=== PATIENT | male | born 1950 | race Caucasian/White ===

== ENCOUNTER 2021-01-27 10:52 | Outpatient (REF) | payer MEDICARE, OTHER, SELFPAY ==
--- NOTE | ~2021-01-27 | MR_ITS ---
EXAMINATION: MRI OF THE LEFT FEMUR WITHOUT CONTRAST CLINICAL INFORMATION: Left hamstring tear/bruising, reduced strength/RPM, weak flexion. COMPARISON: None. TECHNIQUE: Multiplanar MR imaging was obtained to the left femur without contrast material on a 1.5 Mercedes magnet. FINDINGS: Marked intramuscular edema signal is present within the quadriceps musculature, most pronounced at the vastus intermedius and vastus medialis muscles with more mild edema at the vastus lateralis. Within the distal thigh at the level of the distal femoral diaphysis, there is a 2.7 x 1.5 x 7 cm (AP by transverse by craniocaudal) heterogeneous focus of mixed hyperintense and hypointense foci of high T2-weighted images, most likely corresponding to a hematoma. No discrete tendon tears are identified. The distal quadriceps tendon is intact with mild tendinosis. At the origin of the ischial tuberosity, there is mild hamstring tendinosis with a punctate interstitial partial tear, likely chronic. No acute hamstring tears. Hamstring musculature is normal in signal intensity without significant atrophy or edema. There is mild edema signal within the sartorius muscle which is likely related to the underlying quadriceps musculature abnormality. Additional mild edema signal is present within the adductor compartment. No discrete tears. There is a bone island within the mid femoral diaphysis. No suspicious femoral lesions are identified. No fracture or stress reaction. There is osteoarthritis of the patellofemoral compartment of the left knee with an associated joint effusion, only partially imaged on this study. The left hip joint is not well evaluated on these images. There is a prominent left inguinal lymph node measuring up to 1.2 cm in short axis, possibly reactive in nature. No acute intrapelvic findings are identified. MR/MR femur LT wo con IMPRESSION: 1. Marked quadriceps intramuscular edema signal, most notably at the vastus medialis and vastus intermedius distally, surrounding a heterogeneous, 7 cm long intramuscular collection. These findings are most consistent with a quadriceps muscle strain/contusion and an associated intramuscular hematoma. Developing heterotopic ossification is less likely. No significant quadriceps tendon or muscle tears are identified. 2. Mild hamstring tendinosis and a probable small chronic interstitial tear at the origin of the ischial tuberosity.
== END 2021-01-27 10:53 | disposition home or self-care (01) ==
LOC: HO.MRI 10:52
PROVIDERS: PCP Internal Medicine; Visit Provider Internal Medicine
DX: S76.302A Unspecified injury of muscle, fascia and tendon of the posterior muscle group at thigh level, left thigh, initial encounter (principal); S80.12XA Contusion of left lower leg, initial encounter; M62.81 Muscle weakness (generalized)
CPT/HCPCS: 73718

== ENCOUNTER 2021-10-09 15:21 | Emergency (ER) | payer MEDICARE, OTHER, SELFPAY ==
--- NOTE | ~2021-10-09 | XR_ITS ---
EXAMINATION: XR HIP, LEFT CLINICAL INFORMATION: Fall. Pain. COMPARISON: None TECHNIQUE: Frontal view of pelvis. Two views of the left hip. FINDINGS: There is no acute abnormality. There is no fracture. No dislocation of pelvis or hips. No focal bone lesion. Mild degenerative joint disease of both hips and sacroiliac joints. Mild degenerative spondylosis of lower lumbar spine. XR/XR hip LT w PEL1V IMPRESSION: No acute abnormality of the pelvis or hips.
--- NOTE | ~2021-10-09 | XR_ITS ---
EXAMINATION: XR CHEST CLINICAL INFORMATION: Shortness of breath COMPARISON: Chest x-ray 10/01/2019 TECHNIQUE: Frontal view of the chest was obtained. 4:13 PM FINDINGS: Status post median sternotomy. Heart size is normal. Cardiac and mediastinal contours are normal. No pulmonary vascular congestion. Normal aeration of lungs. No pleural effusion or pneumothorax. XR/XR chest 1V IMPRESSION: No acute abnormality of chest.
[2021-10-09 15:34] VITALS: BP 132/65; PULSE 79; RESP 16; TEMP 36.9; O2SAT 98; BMI 22.2
--- NOTE | 2021-10-09 15:51 | ED_ITS ---
HPI - Extremity Injury (Lower) General Chief Complaint: Extremity Injury, Lower Stated Complaint: fell on tuesday Time Seen by Provider: 10/09/21 15:41 Source: patient Mode of arrival: ambulatory Limitations: no limitations History of Present Illness HPI Narrative: Patient on [place] had a mechanical fall 5 days ago fell down few steps landed on his left hip had a huge hematoma comes here for persistent hematoma and swelling with pain especially on ambulation. No head injury no loss of consciousness no other injuries Related Data Previous Rx's Medication Instructions Recorded codeine 10 mg-guaifenesin 100 mg/5 10 ml PO Q6H PRN #237 ml 10/09/21 mL oral liquid Allergies Allergy/AdvReac Type Severity Reaction Status Date / Time No Known Allergies Allergy Verified 10/09/21 16:01 Review of Systems Review of Systems: Yes all other systems are reviewed and are negative PMFSH Past Medical History Medical History Afib Coronary bypass graft mechanical complication Social History Social History Advance Directives: No Advance Directives Information Provided: No Physical Exam Vital Signs: Vital Signs: Last Vital Signs Temp 99.8 F 10/09/21 23:19 Pulse 96 10/09/21 23:19 Resp 18 10/09/21 23:19 BP 119/70 10/09/21 23:19 Pulse Ox 98 10/09/21 23:19 BMI result Body Mass Index 22.2 Const: General: healthy appearing and comfortable Orientation/consciousness: patient oriented x3 HENMT: Head: Yes normocephalic Ears: hearing grossly normal bilaterally Throat: Yes posterior oropharynx normal Eyes: General: appearance normal, both eyes and all related structures Neck: Neck: Yes full ROM, Yes supple and No tender Chest: Chest palpation & inspection: normal inspection of the chest and normal palpation of entire chest wall Resp: Effort & Inspection: normal respiratory effort Auscultation: clear to auscultation bilaterally Cardio: Rate: regular rate Rhythm: regular rhythm Heart sounds: S1 normal heart sound present and S2 normal heart sound present GI: Inspection: Yes normal to inspection Palpation (GI): Soft to palpation and nontender Neuro: General: patient oriented x3 Extrem: Right lower extremity: normal to inspection and full ROM Left lower extremity: full ROM Upper/lower leg/hip images: 1. tense Hematoma at upper part of thigh MDM - Extremity Injury (Lower) MDM Narrative Medical decision making narrative: X-ray negative for fracture patient able to ambulate in the ER workup showed patient has a COVID infection although chest x- ray negative for any acute infiltrate patient is not hypoxic saturating 98% on room air will discharge patient home Lab Data Attestation: I reviewed the patient's lab results. Result diagrams: 10/09/21 16:37 10/09/21 16:37 Labs: Lab Results 10/09/21 10/09/21 10/09/21 Range/Units 16:37 16:37 16:37 WBC 8.2 (4.8-10.8) X10*3/uL RBC 3.45 L (4.60-5.80) X10*6/uL Hgb 9.7 L (14.0-18.0) g/dl Hct 29.0 L (42.0-52.0) % MCV 84.1 (80.0-98.0) fL MCH 28.1 (27.0-33.0) pg MCHC 33.4 (31.0-36.0) g/dl RDW 16.3 H (11.0-16.0) % Plt Count 229 (160-400) X10*3/uL MPV 9.1 L (9.4-12.4) fL Immature Gran % (Auto) 0.1 (0.0-0.4) % Neut % (Auto) 69.5 (45-73) % Lymph % (Auto) 16.2 L (20-40) % Broome % (Auto) 13.6 H (2-11) % Eos % (Auto) 0.2 (0-4) % Baso % (Auto) 0.4 (0-2) % Lymph # (Auto) 1.3 (1.2-4.9) X10*3/uL Broome # (Auto) 1.1 (0.1-1.2) X10*3/uL Eos # (Auto) 0.0 (0.0-0.4) X10*3/uL Baso # (Auto) 0.0 (0.0-0.2) X10*3/uL Abs Immat Gran (auto) 0.01 (0.00-0.03) X10*3/uL Absolute Neuts (auto) 5.7 (2.0-8.3) x10*3/uL Absolute Nucleated RBC 0.000 (0.0-0.012) X10*3/uL Nucleated RBC % (auto) 0.0 (0.0-0.2) /100WBC PT 26.5 H (9.9-13.0) SEC INR 2.3 H (0.9-1.1) Sodium 136 (135-145) mmol/L Potassium 4.5 (3.3-5.1) mmol/L Chloride 103 (96-108) mmol/L Carbon Dioxide 25 (22-29) mmol/L Anion Gap 13 (12-20) BUN 22 H (9-16) mg/dL Creatinine 0.79 (0.5-1.4) mg/dL Estim Creat Clear Calc 84.0 Estimated GFR > 60 Random Glucose 104 (60-115) mg/dL Lactic Acid (0.5-2.0) mmol/L Calcium 8.3 L (8.4-10.2) mg/dL B-Natriuretic Peptide (<100) pg/mL COVID-19 ([facility]) (Negative) COVID-19 Clin Com 10/09/21 10/09/21 10/09/21 Range/Units 16:37 16:37 20:31 WBC (4.8-10.8) X10*3/uL RBC (4.60-5.80) X10*6/uL Hgb (14.0-18.0) g/dl Hct (42.0-52.0) % MCV (80.0-98.0) fL MCH (27.0-33.0) pg MCHC (31.0-36.0) g/dl RDW (11.0-16.0) % Plt Count (160-400) X10*3/uL MPV (9.4-12.4) fL Immature Gran % (Auto) (0.0-0.4) % Neut % (Auto) (45-73) % Lymph % (Auto) (20-40) % Broome % (Auto) (2-11) % Eos % (Auto) (0-4) % Baso % (Auto) (0-2) % Lymph # (Auto) (1.2-4.9) X10*3/uL Broome # (Auto) (0.1-1.2) X10*3/uL Eos # (Auto) (0.0-0.4) X10*3/uL Baso # (Auto) (0.0-0.2) X10*3/uL Abs Immat Gran (auto) (0.00-0.03) X10*3/uL Absolute Neuts (auto) (2.0-8.3) x10*3/uL Absolute Nucleated RBC (0.0-0.012) X10*3/uL Nucleated RBC % (auto) (0.0-0.2) /100WBC PT (9.9-13.0) SEC INR (0.9-1.1) Sodium (135-145) mmol/L Potassium (3.3-5.1) mmol/L Chloride (96-108) mmol/L Carbon Dioxide (22-29) mmol/L Anion Gap (12-20) BUN (9-16) mg/dL Creatinine (0.5-1.4) mg/dL Estim Creat Clear Calc Estimated GFR Random Glucose (60-115) mg/dL Lactic Acid 1.1 (0.5-2.0) mmol/L Calcium (8.4-10.2) mg/dL B-Natriuretic Peptide 275 H (<100) pg/mL COVID-19 ([facility]) Positive A (Negative) COVID-19 Clin Com See Note Discharge Plan Discharge Clinical Impression: Hematoma, COVID-19 Patient Disposition: Home, Self-Care Instructions: Hematoma (ED), COVID-19 (Coronavirus Disease 2019) (ED) Additional Instructions: Drink plenty of fluids rest at home No hematoma will get better with time Social distancing as advised Report to ER if increased shortness of breath Prescriptions: New codeine-guaifenesin 10-100 mg/5 mL liquid 10 ml PO Q6H PRN (Reason: cough) Qty: 237 RF: 0 Interventions: ED Discharge Assessment Last Done: 10/09/21 23:38 Discharge Date/Time: 10/09/21 23:40
[2021-10-09 16:31] VITALS: BP 138/75; PULSE 86; RESP 16; TEMP 37.3; O2SAT 100
[2021-10-09 16:43] LABS: MANUAL DIFF FLAG NO
[2021-10-09 16:44] LABS: Basophils Percent Auto 0.4 % (0-2); Eosinophils Percent Auto 0.2 % (0-4); Hemoglobin 9.7 g/dl (14.0-18.0); Imm Gran Abs Auto 0.01 X10*3/uL (0.00-0.03); Imm Gran Pct Auto 0.1 % (0.0-0.4); Lymphocytes Absolute Auto 1.3 X10*3/uL (1.2-4.9); Lymphocytes Percent Auto 16.2 % (20-40); Mean Corpuscular HGB Conc 33.4 g/dl (31.0-36.0); Mean Corpuscular Hemoglobin 28.1 pg (27.0-33.0); Mean Corpuscular Volume 84.1 fL (80.0-98.0); Mean Platelet Volume 9.1 fL (9.4-12.4); Monocytes Absolute Auto 1.1 X10*3/uL (0.1-1.2); Monocytes Percent Auto 13.6 % (2-11); Neutrophils Absolute Auto 5.7 x10*3/uL (2.0-8.3); Neutrophils Percent Auto 69.5 % (45-73); Platelet Count 229 X10*3/uL (160-400); Red Blood Count 3.45 X10*6/uL (4.60-5.80); Red Cell Distribution Width 16.3 % (11.0-16.0); White Blood Count 8.2 X10*3/uL (4.8-10.8)
[2021-10-09 16:49] LABS: INTERNATIONAL NORM RATIO 2.3 (0.9-1.1); Prothrombin Time 26.5 SEC (9.9-13.0)
[2021-10-09 16:51] LABS: COVID-19 Test Positive (Negative)
[2021-10-09 16:57] LABS: Anion Gap 13 (12-20); Blood Urea Nitrogen 22 mg/dL (9-16); Calcium 8.3 mg/dL (8.4-10.2); Carbon Dioxide 25 mmol/L (22-29); Chloride 103 mmol/L (96-108); Estimated Glomerular Filt Rate > 60; Glucose Random 104 mg/dL (60-115); Potassium 4.5 mmol/L (3.3-5.1); Sodium 136 mmol/L (135-145)
[2021-10-09 17:02] LABS: B Type Natriuretic Peptide 275 pg/mL (<100)
[2021-10-09] MEDS: guaiFEN/Codeine SF 200/20/10ML 10 ML LIQUID PO (18:52)
[2021-10-09 20:02] VITALS: BP 120/69; PULSE 74; RESP 20; TEMP 39.6; O2SAT 99
[2021-10-09] MEDS: Acetaminophen 325 MG TABLET 650 MG PO (20:22)
[2021-10-09 20:59] LABS: Lactic Acid 1.1 mmol/L (0.5-2.0)
[2021-10-09 21:23] VITALS: TEMP 37
[2021-10-09 23:19] VITALS: BP 119/70; PULSE 96; RESP 18; TEMP 37.7; O2SAT 98
--- NOTE | 2021-10-10 01:36 | PC.NURSE ---
[facility] CALLED BACK TO SPEAK W/THIS RN, THEY STATED PT WAS FOUND BY [facility] AND BROUGHT HOME SAFELY.
== END 2021-10-09 23:40 | disposition home or self-care (01) ==
PROVIDERS: Emergency Provider Internal Medicine; PCP Internal Medicine
DX: U07.1 COVID-19 (principal); M25.552 Pain in left hip; R06.02 Shortness of breath; Z79.899 Other long term (current) drug therapy
CPT/HCPCS: 36415; 71045; 73502; 80048; 83605; 83880; 85025; 85610; 87040; 87635; 99284

== ENCOUNTER 2022-01-12 09:47 | Outpatient (REF) | payer MEDICARE, OTHER, SELFPAY ==
--- NOTE | ~2022-01-12 | CT_ITS ---
EXAMINATION: CT ABDOMEN AND PELVIS WITH CONTRAST CLINICAL INFORMATION: Carcinoid tumor COMPARISON: CT abdomen pelvis 03/15/2020 TECHNIQUE: Multidetector volumetric images were obtained from the superior aspect of the liver through the pubic symphysis following administration 85 mL of Omnipaque 350 intravenous contrast. Sagittal and coronal reformatted images were obtained on the technologist's workstation. This CT examination was performed using dose optimization techniques as appropriate, variously including the following: *Automated exposure control *Adjustment of mA and/or kV according to patient size (this includes techniques or standardized protocols for targeted exams where dose is matched to indication/reason for exam; i.e. extremities or head) *Use of iterative reconstruction technique DLP: 311 mGy-cm FINDINGS: Visualized lung bases are well aerated. Coronary artery calcifications are partially visualized. Innumerable lesions are again noted throughout the liver. Direct size comparison of lesions is difficult given large number of lesions and slight differences in contrast bolus timing, however, there appears to be mild interval decrease in size and necrosis of a now 7.6 cm lesion within the posterior right hepatic lobe (previously 10 cm). There are a few smaller lesions within the left hepatic lobe which were not definitively visualized previously, however, again this may be due to contrast bolus timing. Gallstones are noted within an otherwise unremarkable appearing gallbladder. The pancreas, spleen and adrenal glands are unremarkable. Symmetrically enhancing kidneys. No hydronephrosis bilaterally. The stomach is decompressed. Normal caliber loops of small and large bowel. Interval decrease in size of partially calcified mesenteric mass slightly to the left of midline which measures approximately 1.6 x 1.4 cm (previously 2.2 x 1.7 cm). Normal caliber abdominal aorta which demonstrates moderate to severe atherosclerotic disease. No gross retroperitoneal lymphadenopathy. The bladder is relatively decompressed and therefore not accurately evaluated, however, there does appear to be mild diffuse bladder wall thickening. The prostate gland is enlarged measuring 4.6 cm in transverse dimension. There is a small amount of free pelvic fluid. Shotty bilateral inguinal lymph nodes appear unchanged. Interval development of a new 1.3 cm sclerotic lesion within the posterior aspect of the right inferior pubic ramus there is also a new approximately 1 cm sclerotic focus within the L4 vertebral body. Unchanged mild anterolisthesis of L4 on L5. (image 87/95, series 3). There is also been interval development of an approximately 2.3 cm sclerotic focus within the posterior right ilium (image 63). CT/CT abdomen pelvis w con IMPRESSION: -Interval decrease in size of now partially calcified mesenteric mass which measures 1.6 cm (previously 2.3 cm). -Innumerable hepatic lesions are again identified. There appears to be new lesions within the left hepatic lobe, however, some of this may be due to differences in contrast bolus timing. There is suspected interval decrease in size and necrotic transformation of the dominant now 7.6 cm lesion within the posterior right hepatic lobe. -Interval development of several new sclerotic osseous foci concerning for metastatic disease. Fleischner guidelines were followed.
[2022-01-12] MEDS: iohexoL 350 MG/ML 100 ML INFUS..BTL IV (10:48)
== END 2022-01-12 09:48 | disposition home or self-care (01) ==
LOC: HO.CT 09:47
PROVIDERS: PCP Internal Medicine; Visit Provider Internal Medicine Medical Oncology
DX: D3A.00 Benign carcinoid tumor of unspecified site (principal)
CPT/HCPCS: 74177; Q9967